=== PATIENT | female | born 1965 | race Caucasian/White ===

== ENCOUNTER 2016-09-09 15:43 | Emergency (ER) | payer BC ==
[2016-09-09 16:04] VITALS: BP 116/65
[2016-09-09] MEDS ORDERED: Cyclobenzaprine TAB* 10 MG PO ONE (17:11)
--- NOTE | 2016-09-09 17:11 | UC ---
Shoulder Pain HPI - HPI Summary HPI Summary: 1 week muscle spasm left shoulder - History of Current Complaint Chief Complaint: UCUpperExtremity Stated Complaint: SHOULDER COMPLAINT Time Seen by Provider: 09/09/16 16:56 Hx Obtained From: Patient Hx Last Menstrual Period: 09/03/16 ?: No Onset/Duration: Gradual Onset, Lasting Weeks - 1, Still Present Timing: Constant Severity Initially: Moderate Severity Currently: Moderate Location Of Pain: Is Discrete @ Character: Aching, Spasmodic Aggravating Factor(s): Movement Alleviating Factor(s): Nothing Associated Signs And Symptoms: Positive: Negative Related History: Dominant Hand Right - Allergies/Home Medications Allergies/Adverse Reactions: Allergies Allergy/AdvReac Type Severity Reaction Status Date / Time No Known Allergies Allergy Verified 09/09/16 16:03 PMH/Surg Hx/FS Hx/Imm Hx Previously Healthy: Yes - Surgical History Surgical History: Yes Surgery Procedure, Year, and Place: 2 inner ear surgeries, breast reduction 2001. 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 - Family History Known Family History: Positive: None Family History: no reported cardiovascular issues in family lineage - Social History Occupation: Employed Full-time Alcohol Use: Rare Substance Use Type: None Smoking Status (MU): Never Smoked Tobacco - Immunization History Most Recent Tetanus Shot: pt unsure Review of Systems Constitutional: Negative Skin: Negative Eyes: Negative ENT: Negative Respiratory: Negative Cardiovascular: Negative Gastrointestinal: Negative Genitourinary: Negative Motor: Negative Neurovascular: Negative Musculoskeletal: Negative, Myalgia - left shoulder Neurological: Negative Psychological: Negative All Other Systems Reviewed And Are Negative: Yes Physical Exam Triage Information Reviewed: Yes Appearance: Well-Appearing, No Pain Distress, Well-Nourished Vital Signs: Initial Vital Signs Temp 99.9 F 09/09/16 16:04 Pulse 77 09/09/16 16:04 Resp 18 09/09/16 16:04 BP 116/65 09/09/16 16:04 Pulse Ox 99 09/09/16 16:04 Vital Signs Reviewed: Yes Eye Exam: Normal Eyes: Positive: Conjunctiva Clear ENT Exam: Normal ENT: Positive: Normal ENT inspection, Hearing grossly normal, Pharynx normal, TMs normal. Negative: Nasal congestion, Nasal drainage, Tonsillar swelling, Tonsillar exudate, Trismus, Muffled/hoarse voice Dental Exam: Normal Neck exam: Normal Neck: Positive: Supple, Nontender, No Lymphadenopathy Respiratory Exam: Normal Respiratory: Positive: Chest non-tender, Lungs clear, Normal breath sounds, No respiratory distress, No accessory muscle use Cardiovascular Exam: Normal Cardiovascular: Positive: RRR, No Murmur, Pulses Normal, Brisk Capillary Refill Musculoskeletal Exam: Normal Musculoskeletal: Positive: Strength Intact, ROM Intact, No Edema Neurological Exam: Normal Neurological: Positive: Alert, Muscle Tone Normal Psychological Exam: Normal Skin Exam: Normal Shoulder Course/Dx - Course Assessment/Plan: Nsaids, flexeril, gentle exercise follow with pcp - Differential Dx/Diagnosis Differential Diagnosis/HQI/PQRI: Arthritis, Fracture (Closed), Fracture (Open), Sprain, Strain Provider Diagnoses: Left shoulder strain Discharge - Discharge Plan Condition: Stable Disposition: HOME Prescriptions: Cyclobenzaprine TAB* [Flexeril 10 MG TAB*] 10 mg PO TID PRN #15 tab PRN Reason: muscle spasm Patient Education Materials: Muscle Spasm (ED), Thoracic Back Strain (ED), Core Strengthening Exercises (ED) Forms: *School Release Referrals: Kaiser Pike DO [Primary Care Provider] - If Needed
== END 2016-09-09 17:22 | disposition home or self-care (01) ==
LOC: UCEAST 15:43
DX: S43.402A Unspecified sprain of left shoulder joint, initial encounter (principal); X58.XXXA Exposure to other specified factors, initial encounter; Y93.9 Activity, unspecified; Y92.9 Unspecified place or not applicable; Y99.9 Unspecified external cause status
CPT/HCPCS: 99212; A9270-GY; G0463

== ENCOUNTER 2016-12-29 16:41 | Emergency (ER) | payer BC ==
[2016-12-29 16:48] VITALS: BP 129/73
--- NOTE | 2016-12-29 16:52 | UC ---
Lower Extremity/Ankle HPI - HPI Summary HPI Summary: 51 YEAR OLD FEMALE PRESENTS WITH COMPLAINS OF RIGHT FOOT PAIN AFTER BANGING IT AGAINST THE WALL. - History of Current Complaint Chief Complaint: UCLowerExtremity Stated Complaint: FOOT INJURY Time Seen by Provider: 12/29/16 16:50 Hx Last Menstrual Period: 12/25/16 - Allergies/Home Medications Allergies/Adverse Reactions: Allergies Allergy/AdvReac Type Severity Reaction Status Date / Time No Known Allergies Allergy Verified 12/29/16 16:48 PMH/Surg Hx/FS Hx/Imm Hx Previously Healthy: Yes - Surgical History Surgical History: Yes Surgery Procedure, Year, and Place: 2 inner ear surgeries, breast reduction 2001. 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 - Family History Known Family History: Positive: None Family History: no reported cardiovascular issues in family lineage - Social History Alcohol Use: Rare Substance Use Type: None Smoking Status (MU): Never Smoked Tobacco - Immunization History Most Recent Tetanus Shot: pt unsure Review of Systems Constitutional: Negative Skin: Negative Eyes: Negative ENT: Negative Respiratory: Negative Cardiovascular: Negative Gastrointestinal: Negative Genitourinary: Negative Motor: Negative Neurovascular: Negative Musculoskeletal: Other: - RIGHT FOOT PAIN/SWELLING Neurological: Negative Psychological: Negative All Other Systems Reviewed And Are Negative: Yes Physical Exam Triage Information Reviewed: Yes Vital Signs: Initial Vital Signs Temp 37.8 C 12/29/16 16:45 Pulse 66 12/29/16 16:45 Resp 16 12/29/16 16:45 BP 129/73 12/29/16 16:45 Pulse Ox 99 12/29/16 16:45 Eye Exam: Normal ENT Exam: Normal Dental Exam: Normal Neck exam: Normal Neck: Positive: 1 Respiratory Exam: Normal Cardiovascular Exam: Normal Abdominal Exam: Normal Musculoskeletal: Positive: Other: - RIGHT FOOT/TOE FRACTURE Neurological Exam: Normal Psychological Exam: Normal Skin Exam: Normal Lower Extremity Course/Dx - Differential Dx/Diagnosis Provider Diagnoses: RIGHT 2ND TOE FRACTURE. Discharge - Discharge Plan Condition: Stable Disposition: HOME Prescriptions: Acetaminophen TAB* [Tylenol TAB*] 650 mg PO Q6H PRN #100 tab PRN Reason: Pain Patient Education Materials: Toe Fracture (ED), Foot Fracture in Adults (ED) Referrals: Kaiser Pike DO [Primary Care Provider] - Brian Corbett MD [Medical Doctor] -
--- NOTE | 2016-12-29 17:17 | RAD ---
INDICATION: Right foot injury. TECHNIQUE: 3 views of the right foot were obtained. FINDINGS: The bones are normal alignment. There is mild cortical irregularity in the mid diaphysis of the second proximal phalanx possibly representing a nondisplaced fracture. No other fractures are seen. Joint spaces appear maintained. IMPRESSION: POSSIBLE NONDISPLACED FRACTURE OF THE SECOND PROXIMAL PHALANX.
== END 2016-12-29 17:38 | disposition home or self-care (01) ==
LOC: UCEAST 16:41
DX: S92.911A Unspecified fracture of right toe(s), initial encounter for closed fracture (principal); W22.8XXA Striking against or struck by other objects, initial encounter; Y92.9 Unspecified place or not applicable
CPT/HCPCS: 99213; G0463